=== PATIENT | male | born 1960 | race Asian ===

== ENCOUNTER 2024-10-07 06:05 | Emergency (ER) | payer MEDICAID ==
[~2024-10-07] VITALS: Ht 175.3 cm; Wt 79.5 kg
[~2024-10-07 06:05] MED LIST: AMLO-257 PO; GLIP5TAB15 PO; LISI5TAB21 PO; METF-910 PO; NABU-141 PO; NITR0.6T11 SL; SIMV-260 PO; TRAM50TA5 PO
[2024-10-07 06:39] LABS: PLATELET COUNT (AUTO) 325 K/uL (150-450); RED BLOOD CELL COUNT(AUTO) 4.91 MIL/uL (4.50-5.90); RED CELL DISTRIBUTION WIDTH 14.6 % (11.5-14.5); WHITE BLOOD COUNT (AUTO) 8.7 K/uL (4.5-11.0)
[2024-10-07 06:48] LABS: CALCIUM, TOTAL 8.8 mg/dL (8.8-10.5); CREATININE 1.63 mg/dL (0.60-1.30); GLOMERULAR FILTR. RATE CALC 43.0 mL/min (>60); GLUCOSE,RANDOM 102.0 mg/dL (70-110); SODIUM SERUM 137.0 mmol/L (136-145); UREA NITROGEN, BLOOD 35.0 mg/dL (7-18)
[2024-10-07 06:53] LABS: ASPARTATE AMINOTRANSFERASE 21.0 U/L (15-37); TOTAL PROTEIN, SERUM 8.1 g/dL (6.4-8.2)
[2024-10-07] MEDS: ONDANSETRON HCL 4 MG/2 ML VIAL IVP ONE (07:20)
[2024-10-07] MEDS: SODIUM CHLORIDE 0.9% 1,000 ML IV ONE (07:20)
[2024-10-07 07:35] LABS: COVID AG,FIA SOURCE NASAL SWAB
[2024-10-07] MEDS ORDERED: IOHEXOL 350 MG/ML 100 ML VIAL ONE (08:00)
[2024-10-07] MEDS ORDERED: SODIUM CHLORIDE 0.9% 100 ML ONE (08:00)
[2024-10-07 08:09] LABS: SARS-COV2 (COVID) ANTIGEN,FIA Negative (Negative)
[2024-10-07 08:10] LABS: INFLUENZA TYPE A NEGATIVE FOR TYPE A (NEGATIVE); INFLUENZA TYPE B NEGATIVE FOR TYPE B (NEGATIVE)
[2024-10-07 08:10] LABS: APPEARANCE,URINE CLEAR (CLEAR); GLUCOSE, URINE (UA) TRACE mg/dL (NEGATIVE); LEUKOCYTE ESTERASE ,URINE NEGATIVE (NEGATIVE); NITRATE,URINE NEGATIVE (NEGATIVE); OCCULT BLOOD,URINE NEGATIVE (NEGATIVE); SPECIFIC GRAVITIY, URINE 1.025 (1.003-1.030)
[2024-10-07 08:17] LABS: TROPONIN I-HIGH SENSITIVITY 6 ng/L (<76)
[2024-10-07 09:17] VITALS: TEMP 98.1
[2024-10-07] MEDS ORDERED: ONDA-104 PO (09:19)
[2024-10-07] MEDS: BISMUTH SUBSALICYLATE 525 MG/30 ML SUSPENSION UDCUP PO ONE (09:29)
[2024-10-07 09:30] VITALS: BP 120/78; PULSE 95; RESP 18; O2SAT 99
== END 2024-10-07 09:41 | disposition home or self-care (01) ==
LOC: EMS 06:05
DX: K52.9 Noninfective gastroenteritis and colitis, unspecified (principal); R11.2 Nausea with vomiting, unspecified; E11.9 Type 2 diabetes mellitus without complications; E78.00 Pure hypercholesterolemia, unspecified; I10 Essential (primary) hypertension; F17.210 Nicotine dependence, cigarettes, uncomplicated; F15.90 Other stimulant use, unspecified, uncomplicated; Z79.899 Other long term (current) drug therapy; Z20.822 Contact with and (suspected) exposure to COVID-19
CPT/HCPCS: 99285; 74177; 96374; 96361; 99406; 87426; 80048; 80076; 81001; 82962; 83690; 84484; 85025; 87804; 36415; 93005; Q9967; J2405; J7030; J7050

== ENCOUNTER 2024-10-30 06:30 | Emergency (ER) | payer MEDICAID, OTHER ==
[~2024-10-30] VITALS: Ht 175.3 cm; Wt 79.5 kg
[~2024-10-30 06:30] MED LIST changes: +ONDA-104 PO
[2024-10-30 06:41] VITALS: TEMP 98.1
[2024-10-30 07:14] LABS: COVID AG,FIA SOURCE NASAL SWAB
[2024-10-30 07:33] LABS: INFLUENZA TYPE A NEGATIVE FOR TYPE A (NEGATIVE); INFLUENZA TYPE B NEGATIVE FOR TYPE B (NEGATIVE)
[2024-10-30 07:51] LABS: SARS-COV2 (COVID) ANTIGEN,FIA Negative (Negative)
[2024-10-30] MEDS: SODIUM CHLORIDE 0.9% 2,000 ML IV ONE (07:52)
[2024-10-30] MEDS: ONDANSETRON HCL 4 MG/2 ML VIAL IVP ONE (07:52)
[2024-10-30 07:56] LABS: PLATELET COUNT (AUTO) 299 K/uL (150-450); RED BLOOD CELL COUNT(AUTO) 4.89 MIL/uL (4.50-5.90); RED CELL DISTRIBUTION WIDTH 14.7 % (11.5-14.5); WHITE BLOOD COUNT (AUTO) 9.8 K/uL (4.5-11.0)
[2024-10-30 08:09] LABS: CALCIUM, TOTAL 8.8 mg/dL (8.8-10.5); CREATININE 1.37 mg/dL (0.60-1.30); GLOMERULAR FILTR. RATE CALC 53 mL/min (>60); GLUCOSE,RANDOM 123 mg/dL (70-110); SODIUM SERUM 135 mmol/L (136-145); UREA NITROGEN, BLOOD 33 mg/dL (7-18)
[2024-10-30 08:17] LABS: TROPONIN I-HIGH SENSITIVITY 5 ng/L (<76)
[2024-10-30] MEDS ORDERED: ONDA-104 PO (09:06)
[2024-10-30] MEDS ORDERED: ACET-66 PO (09:06)
[2024-10-30] MEDS ORDERED: DIPH-1130 PO (09:06)
[2024-10-30 09:45] VITALS: BP 108/56; PULSE 72; RESP 17; O2SAT 99
== END 2024-10-30 09:59 | disposition home or self-care (01) ==
LOC: EMS 06:39
DX: K52.9 Noninfective gastroenteritis and colitis, unspecified (principal); E86.0 Dehydration; R42 Dizziness and giddiness; E11.9 Type 2 diabetes mellitus without complications; E78.00 Pure hypercholesterolemia, unspecified; I10 Essential (primary) hypertension; F17.210 Nicotine dependence, cigarettes, uncomplicated; F15.90 Other stimulant use, unspecified, uncomplicated; Z20.822 Contact with and (suspected) exposure to COVID-19; Z79.899 Other long term (current) drug therapy
CPT/HCPCS: 99283; 96374; 96361; 87426; 80048; 82962; 83690; 84484; 85025; 87804; 36415; J2405; J7030